=== PATIENT | male | born 1950 | race Hispanic/Latino ===

== ENCOUNTER → 2017-12-28 | Outpatient (CLI) | payer OTHER ==
--- NOTE | 2017-12-28 11:10 | Diagnostic Imaging Report ---
PROCEDURE:TESTICULAR ULTRASOUND COMPARISON:None. INDICATIONS:Spermatocele Of Epididymis TECHNIQUE: [place]-scale and color doppler images of the testicles and scrotal contents were obtained. Duplex imaging with spectral waveform analysis was performed of the testicular arteries and veins. FINDINGS: RIGHT SCROTUM: Testicle: 4.0 x 2.4 x 3.8 cm Epididymal head: 1.2 x 0.6 x 1.2 cm Hydrocele: None Varicocele: None LEFT SCROTUM: Testicle: 4.6 x 1.9 x 3.4 cm Epididymal head: 1.3 x 0.9 x 1.0 cm Hydrocele: None Varicocele: None Focused ultrasound at the palpable site in the right scrotum revealed no specific abnormality. CONCLUSION: No evidence of testicular torsion, mass, or inflammatory disease. No evidence of spermatocele. Dictated by: Tanner Hurst M.D. on 12/28/2017 at 11:11 Electronically approved by: Tanner Hurst M.D. on 12/28/2017 at 11:11
--- NOTE | 2017-12-28 11:11 | Diagnostic Imaging Report ---
PROCEDURE:US TESTICULAR DOPPLER LTD Please see separate dictation for testicular ultrasound (accession #[id number]) for full results. Dictated by: Tanner Hurst M.D. on 12/28/2017 at 11:12 Electronically approved by: Tanner Hurst M.D. on 12/28/2017 at 11:12
== END ==
LOC: US 08:32
PROVIDERS: ATTEND Urology
DX: N43.40 Spermatocele of epididymis, unspecified (principal)
CPT/HCPCS: 76870; 93976

== ENCOUNTER → 2021-07-31 | Outpatient (CLI) | payer OTHER | LOC: MRI 07:56 | PROVIDERS: ATTEND Podiatrist Foot & Ankle Surgery | DX: M86.8X7 Other osteomyelitis, ankle and foot (principal) ==

== ENCOUNTER → 2025-04-16 | Outpatient (REF) | payer OTHER ==
[~2025-04-16] MED LIST: ASPIRIN81 MG PO; ATORVASTATIN CA20 MG PO; CLOPIDOGREL75 MG PO; FLOMAX0.4 MG PO; GLIMEPIRIDE2 MG PO; METFORMIN HCL500 MG PO; NEURONTIN300 MG PO
[2025-04-16 09:39] LABS: BASOPHILS % 0.3 % (0.0-1.0); EOSINOPHILS % 2.3 % (0.0-6.0); LYMPHOCYTES % 71.5 % (18.0-39.1); MONOCYTES % 4.9 % (4.4-11.3); NEUTROPHILS % 20.9 % (38.7-80.0); RED CELL DISTRIBUTION WIDTH 12.8 % (11.7-14.4)
[2025-04-16 10:26] LABS: EST GLOMERULAR FILTRATION RATE 71.0 ML/MIN (>=60)
== END ==
LOC: RAD 08:48 → EDSTATUS 04-20 12:00
PROVIDERS: ATTEND Podiatrist Foot Surgery
DX: Z01.818 Encounter for other preprocedural examination (principal); M86.9 Osteomyelitis, unspecified
CPT/HCPCS: 36415; 80048; 85025; 93005